=== PATIENT | male | born 1955 | race Caucasian/White ===

== ENCOUNTER 2016-02-11 | Outpatient (CLI) | payer BC | END 2016-02-11 15:30 | disposition home or self-care (01) ==

== ENCOUNTER 2016-02-11 15:42 | Outpatient (CLI) | payer BC | END 2016-02-11 15:43 | disposition home or self-care (01) | DX: Z00.00 Encounter for general adult medical examination without abnormal findings (principal); R91.8 Other nonspecific abnormal finding of lung field; J98.11 Atelectasis ==

== ENCOUNTER 2016-02-26 09:11 | Outpatient (CLI) | payer BC | END 2016-02-26 09:12 | disposition home or self-care (01) | DX: Z00.00 Encounter for general adult medical examination without abnormal findings (principal) ==

== ENCOUNTER 2016-06-06 13:30 | Outpatient (CLI) | payer BC | END 2016-06-06 23:59 | disposition home or self-care (01) | DX: Z00.00 Encounter for general adult medical examination without abnormal findings (principal) ==

== ENCOUNTER 2016-06-18 15:23 | Outpatient (CLI) | payer BC | END 2016-06-18 15:24 | disposition home or self-care (01) | DX: M77.31 Calcaneal spur, right foot (principal); M19.071 Primary osteoarthritis, right ankle and foot ==